=== PATIENT | female | born 1990 | race Caucasian/White ===

== ENCOUNTER 2016-11-24 03:06 | Emergency (ER) | payer OTHER ==
[2016-11-24 03:06] VITALS: BP 124/85
--- NOTE | 2016-11-24 03:23 | PHYS DOC ---
Past History Past Medical History: No Pertinent History Past Surgical History: No Surgical History Smoking: Non-smoker Alcohol Use: None Drug Use: None Adult General Chief Complaint Chief Complaint: abdominal pain and [facility] This is a very pleasant 26-year-old female G4 P 3030 at approximately 23 weeks by LMP who is been under the care of Dr. Law at [facility] MICRO PHOTOGRAPHER who presents today with abdominal pain that began yesterday afternoon at 3 PM described as waves of crampy pain. She is called her primary MICRO PHOTOGRAPHER yesterday who encouraged her to take 600 mg of by mouth Motrin. When this did not help her symptoms she came to the emergency department as she's having sharp stabbing pain along with a waves of pain in the right lateral aspect of her abdominal wall. She still feels her child move. He denies any traumas or falls. She denies any UTI symptoms, vaginal bleeding or discharge, or fevers, chills, nausea or vomiting. The pain is described as cramping is mild at this time. It is not increased by movement. sHe is on a daily aspirin for high risk of miscarriage. Other the pain is been relatively moderate when it comes in waves and only lasts for a few minutes. There is a irregular in time and duration. Review of Systems Review of Systems Constitutional: Denies fever or chills [] Eyes: Denies change in visual acuity, redness, or eye pain [] HENT: Denies nasal congestion or sore throat [] Respiratory: Denies cough or shortness of breath [] Cardiovascular: No additional information not addressed in HPI [] GI: Planes of crampy abdominal pain. : Denies dysuria or hematuria [] Musculoskeletal: Denies back pain or joint pain [] Integument: Denies rash or skin lesions [] Neurologic: Denies headache, focal weakness or sensory changes [] Endocrine: Denies polyuria or polydipsia [] Physical Exam Physical Exam Constitutional: Well developed, well nourished, no acute distress, non-toxic appearance. [] Cardiovascular:Heart rate regular rhythm, no murmur [] Lungs & Thorax: Bilateral breath sounds clear to auscultation [] Abdomen: Bowel sounds normal, soft, no tenderness, no masses, no pulsatile masses. Patient's abdominal wall is soft the uterus is soft and there is perceivable movement. Skin: Warm, dry, no erythema, no rash. [] Neurologic: Alert and oriented X 3, normal motor function, normal sensory function, no focal deficits noted. [] Psychologic: Affect normal, judgement normal, mood normal. [] EKG EKG [] Radiology/Procedures Radiology/Procedures [] Course & Med Decision Making Course & Med Decision Making Pertinent Labs and Imaging studies reviewed. (See chart for details) upon patient arrival she did not know we were not a ER that has any MICRO PHOTOGRAPHER services. Given the duration of her symptoms and her gestation over 23 weeks I told her that we would do a heart exam with her Doppler machine and attempt to make arranged for transfer to a facility that has BALANCE STAFF STAKER services. Patient was willing to follow her advice and may go by POV provided we keep Her safe place to go. She is not actively having any pain, she is not in active labor. []Returned Goods Sorter note: Dr. Mark Paged initially 3:23 AM. Returned Goods Sorter called at of the service Dr. Mark callback 3:25 AM he is not electrical continuity inspector for the service and that's different group. Consult called back at 3:25 AM Discussed the case I presented and they agreed with admission. Time of acceptance it was the wrong service so we called for Dr. Law. Returned Goods Sorter note: Ani paged at approximately 3:26 AM Returned Goods Sorter called at of the service MICRO PHOTOGRAPHER on-call return phone call at 3:36 AM It is seen except patient to [facility]. It is okay to discharge the patient and have her travel by POV to the ER to be sent to labor and delivery for an evaluation. Consult called back at 3:37 AM and woke him EKG just to the patient. Discussed the case I presented and they agreed with seeing the patient on labor and delivery immediately. Dragon Disclaimer Dragon Disclaimer This chart was dictated in whole or in part using Voice Recognition software in a busy, high-work load, and often noisy Emergency Department environment. It may contain unintended and wholly unrecognized errors or omissions. Departure Departure: Impression: Primary Impression: Abdominal pain affecting Condition: STABLE Referrals: YAZ JOSEPH (PCP) Patient Instructions: Abdominal Pain During Additional Instructions: These go to [facility] now via POV and go straight to labor and delivery for an evaluation by her MICRO PHOTOGRAPHER. ALINA HERNANDEZ MD Nov 24, 2016 03:23
== END 2016-11-24 03:45 | disposition home or self-care (01) ==
LOC: ER 03:06
DX: O26.892 Other specified pregnancy related conditions, second trimester (principal); R10.9 Unspecified abdominal pain; Z3A.23 23 weeks gestation of pregnancy
CPT/HCPCS: 99281

== ENCOUNTER 2018-04-01 13:30 | Emergency (ER) | payer OTHER ==
[~2018-04-01] VITALS: Ht 165.1 cm; Wt 72.6 kg
[2018-04-01 13:54] VITALS: BP 118/68
--- NOTE | 2018-04-01 13:59 | PHYS DOC ---
Past History Past Medical History: No Pertinent History Past Surgical History: No Surgical History Smoking: Non-smoker Alcohol Use: None Drug Use: None Adult General Chief Complaint Chief Complaint: FLU SYMPTOM HPI HPI 27-year-old female presents with vomiting and diarrhea since yesterday. The patient has had vomiting and/or diarrhea every 15 minutes since about 9 PM yesterday. It is slow down to about every hour for the last 2-3 hours. The patient is unable to drink anything orally as she vomits most immediately after swallowing. She is concern for dehydration due to the volume of fluid loss. Patient denies any any unusual foods. There is no one else in her household is sick. They all ate the same dinner. The diarrhea is very runny and had small amount of blood with her last episode. She denies hematemesis. She has diffuse body aches. She denies fever or chills. Review of Systems Review of Systems Constitutional: Denies fever or chills [] Eyes: Denies change in visual acuity, redness, or eye pain [] HENT: Denies nasal congestion or sore throat [] Respiratory: Denies cough or shortness of breath [] Cardiovascular: No additional information not addressed in HPI [] GI: Nausea, vomiting, diarrhea.[] : Denies dysuria or hematuria [] Musculoskeletal: Body aches[] Integument: Denies rash or skin lesions [] Neurologic: Mild headache. No focal weakness or sensory changes [] Endocrine: Denies polyuria or polydipsia [] All other systems were reviewed and found to be within normal limits, except as documented in this note. Allergies Allergies Allergies Coded Allergies Type Severity Reaction Last Updated Verified No Known Drug Allergies 11/24/16 No Physical Exam Physical Exam Constitutional: Well developed, well nourished, no acute distress, non-toxic appearance. [] HENT: Normocephalic, atraumatic, bilateral external ears normal, oropharynx moist, no oral exudates, nose normal. [] Eyes: PERRLA, EOMI, conjunctiva normal, no discharge. [] Neck: Normal range of motion, no tenderness, supple, no stridor. [] Cardiovascular:Heart rate regular rhythm, no murmur [] Lungs & Thorax: Bilateral breath sounds clear to auscultation [] Abdomen: Bowel sounds normal, soft, no tenderness, no masses, no pulsatile masses. [] Skin: Warm, dry, no erythema, no rash. [] Back: No tenderness, no CVA tenderness. [] Extremities: No tenderness, no cyanosis, no clubbing, ROM intact, no edema. [] Neurologic: Alert and oriented X 3, normal motor function, normal sensory function, no focal deficits noted. [] Psychologic: Affect normal, judgement normal, mood normal. [] EKG EKG [] Radiology/Procedures Radiology/Procedures [] Course & Med Decision Making Course & Med Decision Making Pertinent Labs and Imaging studies reviewed. (See chart for details) The patient has been given Zofran IV as well as 2 L normal saline. She denies urinate until after the 2 L. There was still a dark color. She remains tachycardia above 110, but is feeling a bit better. Her labs are unremarkable. Her output has slowed considerably. I believe she is suffering from a viral gastroenteritis that must run its course. She would like to go home at this time. I will discharge her with a prescription for Zofran and have advised loperamide as needed. She is stable for discharge at this time [] Dragon Disclaimer Dragon Disclaimer This electronic medical record was generated, in whole or in part, using a voice recognition dictation system. Departure Departure: Referrals: SUE FELIX (PCP) Scripts Ondansetron (ZOFRAN ODT) 4 Mg Tab.rapdis 1 TAB SL Q8HRS PRN for NAUSEA/VOMITING for 3 Days, #15 TAB Prov: FELIPA CHILEL DO 04/01/18 FELIPA CHILEL DO Apr 01, 2018 13:59
[2018-04-01] MEDS ORDERED: IV NORMAL SALINE 1,000ML 1,000 ML IV ONE ×2 (14:00→15:15)
[2018-04-01] MEDS ORDERED: ONDANSETRON PF 4 MG/2 ML VIAL. IV ONE (14:00)
[2018-04-01 14:15] LABS: BASO % 1 % (0-3); EOS % 0 % (0-3); HEMATOCRIT 49.1 % (36.0-47.0); HEMOGLOBIN 16.6 g/dL (12.0-15.5); LYMPH # 0.2 x10^3/uL (1.0-4.8); LYMPH % 4 % (24-48); MEAN CORPUSCULAR HEMOGLOBIN 31 pg (25-35); MEAN CORPUSCULAR HGB CONC 34 g/dL (31-37); MEAN CORPUSCULAR VOLUME 91 fL (79-100); MONO # 0.4 x10^3/uL (0.0-1.1); MONO % 9 % (0-9); NEUT # 4.1 x10^3uL (1.8-7.7); NEUT % 87 % (31-73); PLATELET COUNT 190 x10^3/uL (140-400); RED CELL DISTRIBUTION WIDTH 13.4 % (11.5-14.5); WHITE BLOOD COUNT 4.7 x10^3/uL (4.0-11.0)
[2018-04-01 14:21] LABS: ALBUMIN 3.3 g/dL (3.4-5.0); ALBUMIN/GLOBULIN RATIO 0.8 (1.0-1.7); CALCIUM 8.4 mg/dL (8.5-10.1); CREATININE 0.8 mg/dL (0.6-1.0); GFR 85.4; POTASSIUM 3.7 mmol/L (3.5-5.1); TOTAL BILIRUBIN 0.6 mg/dL (0.2-1.0); TOTAL PROTEIN 7.7 g/dL (6.4-8.2)
[2018-04-01] MEDS ORDERED: ONDA4TAB10 SL (16:28)
== END 2018-04-01 16:35 | disposition home or self-care (01) ==
LOC: ER 13:30
DX: R11.2 Nausea with vomiting, unspecified (principal); R19.7 Diarrhea, unspecified; R51 Headache; R00.0 Tachycardia, unspecified
CPT/HCPCS: 36415; 80053; 85025; 96361; 96374; 99285; J2405; J7030

== ENCOUNTER 2018-07-31 23:57 | Emergency (ER) | payer OTHER ==
[~2018-07-31] VITALS: Ht 165.1 cm; Wt 72.6 kg
[~2018-07-31 23:57] MED LIST: ONDA4TAB10 SL
--- NOTE | 2018-07-31 23:59 | ED.ADGEN ---
Past History Past Medical History: No Pertinent History, Anxiety, Depression Past Surgical History: No Surgical History Smoking: Non-smoker Alcohol Use: Occasionally Drug Use: None Adult General Chief Complaint Chief Complaint ".. I tried to kill my self... by taking NyQuil .. it took it abut 1000.. 1030.. I know I made a mistake.. My has gone on TDY... he wants to leave me for his girl friend... I ve had depression before.. and anxiety... " HPI HPI Patient is a 27 year old female dependent who presents with above hx and complaints suicidal ideation. Pt. admits to attempted suicide by taking NyQuil at approximately 22:30 hours. Pt. immediately realized this was not something she wanted to do and called a friend. Pt. has had no previous suicide attempt but has had suicidal ideation and depression issues. Patient has a history of anxiety disorder. 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 Patient's had 4 pregnancies 3 miscarriages one live . Child is 17 months old currently with a friend . Patient normally follows at [facility]. Patient denies any ingestion of additional aspirin or Tylenol. Pt. had 3 beers tonight with ingestion of the NyQuil. Pt. expresses concern over her ingestion of excessive amount of NyQuil. Pt. states she does not really want to harm herself. Review of Systems Review of Systems Constitutional: Denies fever or chills [] Eyes: Denies change in visual acuity, redness, or eye pain [] HENT: Denies nasal congestion or sore throat [] Respiratory: Denies cough or shortness of breath [] Cardiovascular: No additional information not addressed in HPI [] GI:Complaints of abdominal pain, nausea, vomiting. Denies bloody stools or diarrhea [] : Denies dysuria or hematuria [] Musculoskeletal: Denies back pain or joint pain [] Integument: Denies rash or skin lesions [] Neurologic: Denies headache, focal weakness or sensory changes [] Endocrine: Denies polyuria or polydipsia [] All other systems were reviewed and found to be within normal limits, except as documented in this note. Family History Family History Noncontributory Current Medications Current Medications Current Medications Medications (Trade) Dose Ordered Sig/Ariella Start Time Stop Time Status Last Admin Dose Admin Famotidine (Pepcid Vial) 20 mg 1X ONCE 08/01/18 02:30 08/01/18 02:31 DC Folic Acid (FOLIC ACID SYRINGE for ER) 5 mg STK-MED ONCE 08/01/18 00:20 08/01/18 00:21 DC Lactated Ringer's 1,000 ml @ 160 mls/hr Q6H15M 08/01/18 01:30 08/01/18 05:10 DC Multivitamins/ Minerals (Infuvite Adult) 10 ml STK-MED ONCE 08/01/18 00:20 08/01/18 00:21 DC Multivitamins/ Minerals 10 ml/ Folic Acid 1 mg/ Thiamine HCl 100 mg/Lactated Ringer's 1,011.2 ml @ 1,011.2 mls/hr 1X ONCE 08/01/18 00:30 08/01/18 01:29 DC 08/01/18 00:30 1,011.2 MLS/HR Ondansetron HCl (Zofran) 4 mg PRN Q6HRS PRN 08/01/18 02:00 08/01/18 05:10 DC Phytonadione (Vitamin K) 5 mg 1X ONCE 08/01/18 02:00 08/01/18 02:01 DC Thiamine HCl (Thiamine Vial) 200 mg STK-MED ONCE 08/01/18 00:20 08/01/18 00:21 DC See nursing for home meds Allergies Allergies Allergies Coded Allergies Type Severity Reaction Last Updated Verified metoclopramide Allergy Intermediate 08/01/18 Yes Tetracyclines Allergy Unknown 04/01/18 Yes Physical Exam Physical Exam Constitutional: Well developed, well nourished, in acute emotional distress, slightly slurred speech. Tearful and depressed. HENT: Normocephalic, atraumatic, bilateral external ears normal, oropharynx moist, no oral exudates, nose normal. [] Eyes: PERRLA, EOMI, conjunctiva checked., no discharge. [] Neck: Normal range of motion, no tenderness, supple, no stridor. [] Cardiovascular:Heart rate regular rhythm, no murmur [] Lungs & Thorax: Bilateral breath sounds equal at apex on auscultation [] Abdomen: Bowel sounds normal, soft, epigastric tenderness, no masses, no pulsatile masses. []Pt. did vomit once while in ED. Skin: Warm, dry, no erythema, no rash. [] Back: No tenderness, no CVA tenderness. [] Extremities: No tenderness, no cyanosis, no clubbing, ROM intact, no edema. [] Neurologic: Alert and oriented X 3, normal motor function, normal sensory function, no focal deficits noted. [] Psychologic: Affect is tearful, anxious, judgement cyclic process, mood depressed, patient currently states she does not want to commit suicide. Patient denies any homicidal ideation. Patient states she does have follow-up at the counseling center. Current Patient Data Vital Signs Vital Signs Date Time Temp Pulse Resp B/P (MAP) Pulse Ox O2 Delivery O2 Flow Rate FiO2 08/01/18 03:27 66 20 99 08/01/18 00:13 97.9 Room Air Lab Results Laboratory Tests Test 08/01/18 00:05 08/01/18 00:16 08/01/18 00:30 Urine Collection Type Unknown Urine Color Straw Urine Clarity Clear Urine pH 6.5 Urine Specific [place] <=1.005 Urine Protein Neg (NEG-TRACE) Urine Glucose (UA) Neg mg/dL (NEG) Urine Ketones (Stick) Neg mg/dL (NEG) Urine Blood Neg (NEG) Urine Nitrite Neg (NEG) Urine Bilirubin Neg (NEG) Urine Urobilinogen Dipstick 0.2 mg/dL (0.2 mg/dL) Urine Leukocyte Esterase Neg (NEG) Urine RBC 0 /HPF (0-2) Urine WBC 0 /HPF (0-4) Urine Squamous Epithelial Cells Occ /LPF Urine Bacteria 0 /HPF (0-FEW) Urine Opiates Screen Neg (NEG) Urine Methadone Screen Neg (NEG) Urine Barbiturates Neg (NEG) Urine Phencyclidine Screen Neg (NEG) Urine Amphetamine/Methamphetamine Neg (NEG) Urine Benzodiazepines Screen Neg (NEG) Urine Cocaine Screen Neg (NEG) Urine Cannabinoids Screen Neg (NEG) Urine Ethyl Alcohol Pos (NEG) POC Urine HCG, Qualitative hcg negative (Negative) White Blood Count 5.7 x10^3/uL (4.0-11.0) Red Blood Count 4.79 x10^6/uL (3.50-5.40) Hemoglobin 15.2 g/dL (12.0-15.5) Hematocrit 44.3 % (36.0-47.0) Mean Corpuscular Volume 92 fL (79-100) Mean Corpuscular Hemoglobin 32 pg (25-35) Mean Corpuscular Hemoglobin Concent 34 g/dL (31-37) Red Cell Distribution Width 13.2 % (11.5-14.5) Platelet Count 214 x10^3/uL (140-400) Neutrophils (%) (Auto) 54 % (31-73) Lymphocytes (%) (Auto) 30 % (24-48) Monocytes (%) (Auto) 11 % (0-9) H Eosinophils (%) (Auto) 5 % (0-3) H Basophils (%) (Auto) 1 % (0-3) Neutrophils # (Auto) 3.1 x10^3uL (1.8-7.7) Lymphocytes # (Auto) 1.7 x10^3/uL (1.0-4.8) Monocytes # (Auto) 0.6 x10^3/uL (0.0-1.1) Eosinophils # (Auto) 0.3 x10^3/uL (0.0-0.7) Basophils # (Auto) 0.0 x10^3/uL (0.0-0.2) Prothrombin Time 11.2 SEC (9.4-11.4) Prothrombin Time INR 1.1 (0.9-1.1) PTT 25 SEC (23-33) Sodium Level 144 mmol/L (136-145) Potassium Level 3.5 mmol/L (3.5-5.1) Chloride Level 107 mmol/L (98-107) Carbon Dioxide Level 22 mmol/L (21-32) Anion Gap 15 (6-14) H Blood Urea Nitrogen 7 mg/dL (7-20) Creatinine 0.6 mg/dL (0.6-1.0) Estimated GFR (Cockcroft-Gault) 119.0 Glucose Level 78 mg/dL (70-99) Calcium Level 9.4 mg/dL (8.5-10.1) Magnesium Level 2.0 mg/dL (1.8-2.4) Total Bilirubin 0.3 mg/dL (0.2-1.0) Direct Bilirubin 0.1 mg/dL (0.0-0.2) Aspartate Amino Transferase (AST) 17 U/L (15-37) Alanine Aminotransferase (ALT) 22 U/L (14-59) Alkaline Phosphatase 60 U/L (46-116) Creatine Kinase 75 U/L (26-192) NY-Ywq-D-Type Natriuretic Peptide 70 pg/mL (0-124) Total Protein 7.6 g/dL (6.4-8.2) Albumin 3.8 g/dL (3.4-5.0) Lipase 128 U/L (73-393) Salicylates Level 1.1 mg/dL (2.8-20.0) L Salicylate Last Dose Date Unk Salicylate Last Dose Time Unk Acetaminophen Level 82.5 mcg/mL (10-30) H Acetaminophen Last Dose Date Unk Acetaminophen Last Dose Time Unk Ethyl Alcohol Level 54 mg/dL (0-10) H EKG EKG My interpretation EKG shows a sinus rhythm at 74 bpm. There is some nonspecific anterior changes but no findings acute STEMI of contralateral changes.[] Radiology/Procedures Radiology/Procedures My interpretation acute abdomen film shows no acute cardiopulmonary findings. No free air in the diaphragm. Nonspecific bowel gas pattern.[] Course & Med Decision Making Course & Med Decision Making Pertinent Labs and Imaging studies reviewed. (See chart for details) See Psych . Manisha Maguire RN SECURITY- pt. to keep schedule follow up [facility]. Return if any concerns. Patient will be discharge with her friend Leslie sullivan. She was agreed to be with pt. Pt. to return if any concerns or impulses to harm herself. Pt. promises not to harm herself and will keep schedule follow up with [facility]. Pt. will return if any exacerbation of her anxiety or suicidal ideation. Pt. appears to have good social support and safety plan. Pt. currently felt to be at low risk for self harm. [] Final Impression Final Impression 1. Suicidal Ideation and Attempt 2. Depression 3. Anxiety[] 4. Elevated salicylate level 1.1 5. Elevated acetaminophen level 82.5 6. ETOH level 54 Dragon Disclaimer Dragon Disclaimer This electronic medical record was generated, in whole or in part, using a voice recognition dictation system. Dragon Disclaimer This chart was dictated in whole or in part using Voice Recognition software in a busy, high-work load, and often noisy Emergency Department environment. It may contain unintended and wholly unrecognized errors or omissions. Discharge Summary Visit Information Final Diagnosis Problems Medical Problems: (1) Depression with suicidal ideation Status: Acute Brief Hospital Course Allergies Allergies Coded Allergies Type Severity Reaction Last Updated Verified metoclopramide Allergy Intermediate 08/01/18 Yes Tetracyclines Allergy Unknown 04/01/18 Yes Vital Signs Vital Signs Date Time Temp Pulse Resp B/P (MAP) Pulse Ox O2 Delivery O2 Flow Rate FiO2 08/01/18 03:27 66 20 99 08/01/18 00:13 97.9 Room Air Lab Results Laboratory Tests Test 08/01/18 00:05 08/01/18 00:16 08/01/18 00:30 Urine Collection Type Unknown Urine Color Straw Urine Clarity Clear Urine pH 6.5 Urine Specific [place] <=1.005 Urine Protein Neg (NEG-TRACE) Urine Glucose (UA) Neg mg/dL (NEG) Urine Ketones (Stick) Neg mg/dL (NEG) Urine Blood Neg (NEG) Urine Nitrite Neg (NEG) Urine Bilirubin Neg (NEG) Urine Urobilinogen Dipstick 0.2 mg/dL (0.2 mg/dL) Urine Leukocyte Esterase Neg (NEG) Urine RBC 0 /HPF (0-2) Urine WBC 0 /HPF (0-4) Urine Squamous Epithelial Cells Occ /LPF Urine Bacteria 0 /HPF (0-FEW) Urine Opiates Screen Neg (NEG) Urine Methadone Screen Neg (NEG) Urine Barbiturates Neg (NEG) Urine Phencyclidine Screen Neg (NEG) Urine Amphetamine/Methamphetamine Neg (NEG) Urine Benzodiazepines Screen Neg (NEG) Urine Cocaine Screen Neg (NEG) Urine Cannabinoids Screen Neg (NEG) Urine Ethyl Alcohol Pos (NEG) Bedside Urine HCG, Qualitative hcg negative (Negative) White Blood Count 5.7 x10^3/uL (4.0-11.0) Red Blood Count 4.79 x10^6/uL (3.50-5.40) Hemoglobin 15.2 g/dL (12.0-15.5) Hematocrit 44.3 % (36.0-47.0) Mean Corpuscular Volume 92 fL (79-100) Mean Corpuscular Hemoglobin 32 pg (25-35) Mean Corpuscular Hemoglobin Concent 34 g/dL (31-37) Red Cell Distribution Width 13.2 % (11.5-14.5) Platelet Count 214 x10^3/uL (140-400) Neutrophils (%) (Auto) 54 % (31-73) Lymphocytes (%) (Auto) 30 % (24-48) Monocytes (%) (Auto) 11 % (0-9) Eosinophils (%) (Auto) 5 % (0-3) Basophils (%) (Auto) 1 % (0-3) Neutrophils # (Auto) 3.1 x10^3uL (1.8-7.7) Lymphocytes # (Auto) 1.7 x10^3/uL (1.0-4.8) Monocytes # (Auto) 0.6 x10^3/uL (0.0-1.1) Eosinophils # (Auto) 0.3 x10^3/uL (0.0-0.7) Basophils # (Auto) 0.0 x10^3/uL (0.0-0.2) Prothrombin Time 11.2 SEC (9.4-11.4) Prothromb Time International Ratio 1.1 (0.9-1.1) Activated Partial Thromboplast Time 25 SEC (23-33) Sodium Level 144 mmol/L (136-145) Potassium Level 3.5 mmol/L (3.5-5.1) Chloride Level 107 mmol/L (98-107) Carbon Dioxide Level 22 mmol/L (21-32) Anion Gap 15 (6-14) Blood Urea Nitrogen 7 mg/dL (7-20) Creatinine 0.6 mg/dL (0.6-1.0) Estimated GFR (Cockcroft-Gault) 119.0 Glucose Level 78 mg/dL (70-99) Calcium Level 9.4 mg/dL (8.5-10.1) Magnesium Level 2.0 mg/dL (1.8-2.4) Total Bilirubin 0.3 mg/dL (0.2-1.0) Direct Bilirubin 0.1 mg/dL (0.0-0.2) Aspartate Amino Transf (AST/SGOT) 17 U/L (15-37) Alanine Aminotransferase (ALT/SGPT) 22 U/L (14-59) Alkaline Phosphatase 60 U/L (46-116) Creatine Kinase 75 U/L (26-192) MM-Ooi-U-Type Natriuretic Peptide 70 pg/mL (0-124) Total Protein 7.6 g/dL (6.4-8.2) Albumin 3.8 g/dL (3.4-5.0) Lipase 128 U/L (73-393) Salicylates Level 1.1 mg/dL (2.8-20.0) Salicylate Last Dose Date Unk Salicylate Last Dose Time Unk Acetaminophen Level 82.5 mcg/mL (10-30) Acetaminophen Last Dose Date Unk Acetaminophen Last Dose Time Unk Ethyl Alcohol Level 54 mg/dL (0-10) Brief Hospital Course Ms. Cunningham is a 27 old female who presented with suicidal ideation and ingestion of NyQuil. Discharge Information Condition at Discharge: Improved, Stable Disposition/Orders: D/C to Home Dischare Medications Current Medications Lactated Ringer's 1,000 ml @ 1,000 mls/hr Q1H IV Last administered on at 00:30; Admin Dose 1,000 MLS/HR; Start 08/01/18 at 00:30; Stop 08/01/18 at 01: 29; Status DC Multivitamins/ Minerals 10 ml/ Folic Acid 1 mg/ Thiamine HCl 100 mg/Lactated Ringer's 1,011.2 ml @ 1,011.2 mls/hr 1X ONCE IV Last administered on at 00:30; Admin Dose 1,011.2 MLS/HR; Start 08/01/18 at 00:30; Stop 08/01/18 at 01:29; Status DC Thiamine HCl (Thiamine Vial) 200 mg STK-MED ONCE IV ; Start 08/01/18 at 00:20; Stop 08/01/18 at 00:21; Status DC Multivitamins/ Minerals (Infuvite Adult) 10 ml STK-MED ONCE IV ; Start 08/01/18 at 00:20; Stop 08/01/18 at 00:21; Status DC Folic Acid (FOLIC ACID SYRINGE for ER) 5 mg STK-MED ONCE IV ; Start 08/01/18 at 00:20; Stop 08/01/18 at 00:21; Status DC Ondansetron HCl (Zofran) 8 mg 1X ONCE IV ; Start 08/01/18 at 00:45; Stop at 00:45; Status DC Lactated Ringer's 1,000 ml @ 160 mls/hr Q6H15M IV ; Start 08/01/18 at 01:30; Stop 08/01/18 at 05:10; Status DC Phytonadione (Vitamin K) 5 mg 1X ONCE SQ ; Start 08/01/18 at 02:00; Stop at 02:01; Status DC Famotidine (Pepcid Vial) 20 mg 1X ONCE IVP ; Start 08/01/18 at 02:30; Stop at 02:31; Status DC Ondansetron HCl (Zofran) 4 mg PRN Q6HRS PRN IV active nausea and vomiting; Start 08/01/18 at 02:00; Stop 08/01/18 at 05:10; Status DC Active Scripts Active Zofran Odt (Ondansetron) 4 Mg Tab.rapdis 1 Tab SL Q8HRS PRN 3 Days DAVID RAMSAY MD Jul 31, 2018 23:59
[2018-08-01] MEDS ORDERED: THIAMINE 200 MG/2 ML VIAL. IV ONE (00:20)
[2018-08-01] MEDS ORDERED: FOLIC ACID 5 MG/ML SYRINGE for ER IV ONE (00:20)
[2018-08-01] MEDS ORDERED: MVI, ADULT NO.4 WITH VIT K 10 ML VIAL IV ONE (00:20)
[2018-08-01] MEDS ORDERED: IV RINGERS SOLUTION,LACTATED 1,000 ML IV SCH ×2 (00:30→01:30)
[2018-08-01] MEDS ORDERED: MVI, ADULT NO.4 WITH VIT K 10 ML, FOLIC ACID SYRINGE for ER 1 MG, THIAMINE INJ 100 MG i... IV ONE ×4 (00:30)
[2018-08-01] MEDS ORDERED: ONDANSETRON PF 4 MG/2 ML VIAL. IV ONE (00:45)
[2018-08-01 01:00] LABS: BASO % 1 % (0-3); EOS # 0.3 x10^3/uL (0.0-0.7); EOS % 5 % (0-3); HEMATOCRIT 44.3 % (36.0-47.0); HEMOGLOBIN 15.2 g/dL (12.0-15.5); LYMPH # 1.7 x10^3/uL (1.0-4.8); LYMPH % 30 % (24-48); MEAN CORPUSCULAR HEMOGLOBIN 32 pg (25-35); MEAN CORPUSCULAR HGB CONC 34 g/dL (31-37); MEAN CORPUSCULAR VOLUME 92 fL (79-100); MONO # 0.6 x10^3/uL (0.0-1.1); MONO % 11 % (0-9); NEUT # 3.1 x10^3uL (1.8-7.7); NEUT % 54 % (31-73); PLATELET COUNT 214 x10^3/uL (140-400); RED BLOOD COUNT 4.79 x10^6/uL (3.50-5.40); RED CELL DISTRIBUTION WIDTH 13.2 % (11.5-14.5); WHITE BLOOD COUNT 5.7 x10^3/uL (4.0-11.0)
[2018-08-01 01:07] LABS: BACTERIA,URINE 0 /HPF (0-FEW); BARBITURATES NEG (NEG); BENZODIAZEPINES NEG (NEG); BILIRUBIN,URINE NEG (NEG); CANNABINOIDS NEG (NEG); CLARITY,URINE CLEAR; COCAINE NEG (NEG); COLOR,URINE STRAW; GLUCOSE,URINE NEG (NEG); METHADONE NEG (NEG); NITRITE,URINE NEG (NEG); OPIATES NEG (NEG); PHENCYCLIDINE NEG (NEG); RBC,URINE 0 /HPF (0-2); SQUAMOUS EPITHELIAL CELL,UR OCC /LPF; UROBILINOGEN,URINE 0.2 mg/dL (0.2 mg/dL); WBC,URINE 0 /HPF (0-4)
[2018-08-01 01:08] LABS: AMPHETAMINE/METHAMPHETAMINE NEG (NEG)
[2018-08-01 01:12] LABS: ETHANOL 54 mg/dL (0-10); SALIC 1.1 mg/dL (2.8-20.0)
[2018-08-01 01:15] LABS: ACETAMIN 82.5 mcg/mL (10-30)
[2018-08-01 01:21] LABS: ALBUMIN 3.8 g/dL (3.4-5.0); CALCIUM 9.4 mg/dL (8.5-10.1); CREATININE 0.6 mg/dL (0.6-1.0); DIRECT BILIRUBIN 0.1 mg/dL (0.0-0.2); POTASSIUM 3.5 mmol/L (3.5-5.1); TOTAL BILIRUBIN 0.3 mg/dL (0.2-1.0); TOTAL PROTEIN 7.6 g/dL (6.4-8.2)
[2018-08-01] MEDS ORDERED: PHYTONADIONE 10 MG/ML AMPUL. SQ ONE (02:00)
[2018-08-01] MEDS ORDERED: ONDANSETRON PF 4 MG/2 ML VIAL. IV PRN (02:00)
[2018-08-01] MEDS ORDERED: FAMOTIDINE 20 MG/2 ML VIAL IVP ONE (02:30)
--- NOTE | 2018-08-01 02:38 | RAD ---
Abdominal series dated 08/01/2018. No comparison available. CLINICAL INDICATION: Nausea vomiting. Abdominal pain. Overdose. FINDINGS: Single upright view of the chest shows normal heart and mediastinal contours. Lungs are clear. No consolidation or pleural effusion. No pneumothorax. Flat and upright views the abdomen show nondilated gas-filled loops of bowel throughout. No abnormal calcification. There are a few scattered colonic air-fluid levels on the upright view. No pneumoperitoneum. IMPRESSION: 1. Nonobstructive bowel gas pattern. 2. There are a few scattered colonic air-fluid levels, nonspecific. Could be related to colitis. Electronically signed by: Wei Knight MD (08/01/2018 2:35 AM) [facility]
[2018-08-01 03:27] VITALS: BP 143/91
[2018-08-01 04:55] LABS: SALIC 0.9 mg/dL (2.8-20.0)
--- NOTE | 2018-08-03 12:21 | EKG ---
[address] [address] Test Date: 2018-08-01 Test Time: 00:17:08 Pat Name: BRENDA GUTIERREZ Department: Room: Gender: F Torch Straightener: PEDRO LUIS : 1990 Requested By: DAVID RAMSAY Order Number: [id number] Reading MD: Tl Conte MD Measurements Intervals [place] Rate: 74 P: 56 HI: 138 QRS: 51 QRSD: 90 T: 26 QT: 356 QTc: 396 Interpretive Statements SINUS RHYTHM Electronically Signed On 08-03-2018 15:17:53 EXTRACT MIXER by Tl Conte MD
== END 2018-08-01 05:04 | disposition home or self-care (01) ==
LOC: ER 23:57 → UNDOADMIN 08-01 03:49 → ICU 08-01 03:49 → ER 08-01 05:04
DX: R45.851 Suicidal ideations (principal); T50.992A Poisoning by other drugs, medicaments and biological substances, intentional self-harm, initial encounter; F32.9 Major depressive disorder, single episode, unspecified; F41.9 Anxiety disorder, unspecified; R97.0 Elevated carcinoembryonic antigen [CEA]; R79.0 Abnormal level of blood mineral; F10.10 Alcohol abuse, uncomplicated; Z88.8 Allergy status to other drugs, medicaments and biological substances; Z88.1 Allergy status to other antibiotic agents; Y90.2 Blood alcohol level of 40-59 mg/100 ml; Y92.89 Other specified places as the place of occurrence of the external cause
CPT/HCPCS: 36415; 74022; 80048; 80076; 80307; 81001; 81025; 82550; 83690; 83735; 83880; 84443; 85025; 85610; 85730; 93005; 96365; 96366; 99284; G0480; G6039; J7120; 80329; 82003

== ENCOUNTER → 2019-12-22 | Outpatient (CLI) | payer OTHER ==
--- NOTE | 2019-12-22 09:24 | RAD ---
EXAM: Abdomen CT without intravenous contrast. HISTORY: Right upper quadrant pain. TECHNIQUE: Computed tomographic images of the abdomen were obtained without contrast. Multiplanar reformatting was performed. *One or more of the following individualized dose reduction techniques were utilized for this examination: 1. Automated exposure control. 2. Adjustment of the mA and/or kV according to patient size. 3. Use of iterative reconstruction technique. COMPARISON: None. FINDINGS: Evaluation of the lower thorax demonstrates partially calcified and calcified granulomas within the left lower lobe. There is no suspicious noncalcified nodule. There is no infiltrate or pleural effusion. The heart is normal in size. No hepatic lesion is seen. The gallbladder, pancreas, spleen, adrenal glands and kidneys are unremarkable. There is no appendicitis. There is a small proximal colonic diverticulum. There is no bowel obstruction. There is no lymphadenopathy. The aorta is normal in caliber. There is no suspicious osseous lesion. No hernia is seen. IMPRESSION: No acute abdominal or pelvic finding. No finding to correlate with right upper quadrant pain. Electronically signed by: Cleo Powell MD (12/22/2019 9:21 AM) [id number]
== END ==
LOC: CT 08:47
PROVIDERS: ATTEND Surgery
DX: K46.9 Unspecified abdominal hernia without obstruction or gangrene (principal)
CPT/HCPCS: 74150